=== PATIENT | female | born 1960 | race Caucasian/White ===

== ENCOUNTER 2019-09-22 10:14 | Inpatient (IN) | payer OTHER ==
[2019-09-22] VITALS (11 sets, daily range): BP systolic 97–131; BP diastolic 72–81
[~2019-09-22] VITALS: Ht 162.6 cm; Wt 58.3 kg
--- NOTE | ~2019-09-22 | EEG ---
[address] [address] EEG STUDY REPORT Name: RIDGE CAMPOS Room: [address] IN .#: [id number] Admission: 09/22/19 Attend Phys: Shekhar Lopez MD Discharge: Date of : 58 Report #: [id number] THIS REPORT FOR: //name// CC: Shekhar Lopez [facility] physician/PCP DATE OF SERVICE: 09/23/2019 This patient is being evaluated for altered mental status. EEG was done by placing the electrode by standard 10-20 system of electrode placement. Both referential and sequential montages were used for recording. Background activity in this patient's EEG is about 8 Hz and 30 microvolt. Photic stimulation is unremarkable. The patient became drowsy that is associated with bilateral slowing and vertex sharp waves. Throughout the record, no active epileptiform activity was noticed. IMPRESSION: This patient's EEG is unremarkable. Thank you very much for this referral. By: [id number] Velázquez MD /nt
[~2019-09-22 10:14] MED LIST: ALPRAZOLAM; ALPRAZOLAM2 MG PO; CARISOPRODOL 3350 M1 GT; DARVOCET-N 1001 EAC1 PO; DESYREL300 MG PO
[2019-09-22] MEDS ORDERED: SOMA350 MG PO (10:30)
[2019-09-22 10:39] LABS: ABSOLUTE BASOPHILS 0.1 thou/uL (0.0-0.2); ABSOLUTE LYMPHOCYTES 1.3 thou/uL (0.8-5.3); ABSOLUTE MONOCYTES 0.6 thou/uL (0.0-1.2); ABSOLUTE NEUTROPHILS 3.9 thou/uL (1.6-8.1); EOSINOPHILS 0.7 %; HEMATOCRIT 39.1 % (37.0-47.0); HEMOGLOBIN 13.4 gm/dL (12.0-15.0); LYMPHOCYTES 22.7 %; MCHC 34.2 g/dL (28.0-37.0); MCV 108.3 fL (80.0-100.0); MONOCYTES 10.2 %; MPV 8.1 fl. (7.2-11.1); NUCLEATED RBCS 0 /100WBC; PLATELET COUNT* 236 thou/uL (150-400); POLYS 65.4 %; RBC 3.61 mil/uL (4.20-5.00); RDW-CV 15.9 % (10.5-14.5); WBC 5.9 thou/uL (4.0-11.0)
[2019-09-22 10:52] LABS: CALCIUM 8.6 mg/dL (8.5-10.1); CREATININE 0.9 mg/dL (0.6-1.3); POTASSIUM 3.5 mmol/L (3.5-5.1)
[2019-09-22 10:53] LABS: PROTIME 10.7 Seconds (9.20-11.50)
[2019-09-22 11:00] LABS: SALICYLATE 3.3 mg/dL (2.8-20.0)
[2019-09-22 11:01] LABS: ACETAMINOPHEN < 2 ug/mL (10-30); ALCOHOL < 10 mg/dL (<10)
[2019-09-22 11:03] LABS: ALBUMIN 3.6 g/dL (3.4-5.0); TOTAL PROTEIN 6.7 g/dL (6.4-8.2)
[2019-09-22 11:38] LABS: URINE BILIRUBIN NEGATIVE (Negative); URINE BLOOD TRACE (Negative); URINE CLARITY CLEAR; URINE COLOR YELLOW; URINE GLUCOSE-RANDOM NEGATIVE (Negative); URINE KETONES NEGATIVE (Negative); URINE LEUKOCYTES-REFLEX TRACE (Negative); URINE NITRITE-REFLEX NEGATIVE (Negative); URINE PROTEIN NEGATIVE (Negative)
[2019-09-22 11:52] LABS: BACTERIA-REFLEX 1-9 Few /HPF (None Seen); CRYSTALS None Seen /LPF (None Seen); HYALINE CASTS 0-3 Few /LPF (None Seen); MUCUS 4-6 Moderate strn/LPF (None Seen); SQUAMOUS 4-10 Moderate /LPF (0-3); URINE RBC 0-2 Rare /HPF (0-2); URINE WBC-REFLEX 6-15 Few /HPF (0-5)
[2019-09-22 13:22] LABS: AMP/METHAMP Negative (Negative); BARBITURATES Negative (Negative); BENZODIAZEPINES POSITIVE (Negative); COCAINE Negative (Negative); METHADONE Negative (Negative); OPIATES Negative (Negative); PCP Negative (Negative); THC Negative (Negative)
[2019-09-22] MEDS ORDERED: METHOCARBAMOL500 M2 PO ×2 (14:32→14:33)
[2019-09-22] MEDS ORDERED: PEPCID20 MG PO (14:35)
[2019-09-22] MEDS ORDERED: NEURONTIN 300M300 M2 PO (14:36)
[2019-09-23] VITALS (13 sets, daily range): BP systolic 100–132; BP diastolic 63–88
[2019-09-23 04:13] LABS: ABSOLUTE BASOPHILS 0.1 thou/uL (0.0-0.2); ABSOLUTE EOSINOPHILS 0.1 thou/uL (0.0-0.7); ABSOLUTE LYMPHOCYTES 3.5 thou/uL (0.8-5.3); ABSOLUTE MONOCYTES 0.7 thou/uL (0.0-1.2); ABSOLUTE NEUTROPHILS 2.5 thou/uL (1.6-8.1); BASOPHILS 0.7 %; EOSINOPHILS 0.9 %; HEMATOCRIT 35.8 % (37.0-47.0); HEMOGLOBIN 12.2 gm/dL (12.0-15.0); LYMPHOCYTES 51.7 %; MCH 37.1 pg (26.0-34.0); MCV 109.1 fL (80.0-100.0); MONOCYTES 9.7 %; MPV 8.4 fl. (7.2-11.1); NUCLEATED RBCS 0 /100WBC; PLATELET COUNT* 239 thou/uL (150-400); RBC 3.28 mil/uL (4.20-5.00); RDW-CV 16.2 % (10.5-14.5); WBC 6.8 thou/uL (4.0-11.0)
[2019-09-23 04:30] LABS: CALCIUM 8.4 mg/dL (8.5-10.1); CREATININE 0.6 mg/dL (0.6-1.3); POTASSIUM 3.2 mmol/L (3.5-5.1)
--- NOTE | 2019-09-23 17:31 | EKG ---
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 : 1960 Requested By: Lalo Hilliard Order Number: [id number] MD: Jesus Esparza Measurements Intervals [place] Rate: 105 P: 72 OK: 147 QRS: 77 QRSD: 79 T: 22 QT: 342 QTc: 453 Interpretive Statements Sinus tachycardia Consider right atrial enlargement Borderline repolarization abnormality Compared to ECG 04/16/2018 22:11:20 No significant changes Electronically Signed On 09-23-2019 17:31:40 CDT by Jesus Esparza [email or web address] <ELECTRONICALLY SIGNED> By: Jesus Esparza MD, [facility] 09/23/19 1731 1042 1042 Jesus Esparza MD, [facility] /EPI
[2019-09-24] VITALS: BP 139/85
[2019-09-24 07:38] LABS: ABSOLUTE BASOPHILS 0.2 thou/uL (0.0-0.2); ABSOLUTE EOSINOPHILS 0.1 thou/uL (0.0-0.7); ABSOLUTE LYMPHOCYTES 3.6 thou/uL (0.8-5.3); ABSOLUTE MONOCYTES 0.7 thou/uL (0.0-1.2); BASOPHILS 2.2 %; EOSINOPHILS 0.8 %; HEMATOCRIT 35.2 % (37.0-47.0); HEMOGLOBIN 11.8 gm/dL (12.0-15.0); LYMPHOCYTES 48.4 %; MCH 37.1 pg (26.0-34.0); MCHC 33.6 g/dL (28.0-37.0); MCV 110.3 fL (80.0-100.0); MONOCYTES 8.9 %; MPV 9.8 fl. (7.2-11.1); NUCLEATED RBCS 0 /100WBC; PLATELET COUNT* 189 thou/uL (150-400); POLYS 39.7 %; RBC 3.19 mil/uL (4.20-5.00); RDW-CV 16.5 % (10.5-14.5); WBC 7.5 thou/uL (4.0-11.0)
[2019-09-24 08:00] VITALS: BP 133/90
[2019-09-24 08:09] LABS: ALBUMIN 3.3 g/dL (3.4-5.0); CALCIUM 8.6 mg/dL (8.5-10.1); CREATININE 0.6 mg/dL (0.6-1.3); MAGNESIUM 2.2 mg/dL (1.8-2.4); PHOSPHORUS* 3.8 mg/dL (2.5-4.9); POTASSIUM 4.5 mmol/L (3.5-5.1); TOTAL BILIRUBIN 0.8 mg/dL (<0.1-1.0); TOTAL PROTEIN 5.9 g/dL (6.4-8.2)
[2019-09-24 11:13] LABS: MACROCYTES 2+; PLATELET ESTIMATE ADEQUATE
[2019-09-24 12:00] VITALS: BP 127/76
[2019-09-24 16:22] VITALS: BP 133/103
[2019-09-24 19:30] VITALS: BP 140/82
[2019-09-25] VITALS: BP 137/91
--- NOTE | 2019-09-25 03:46 | CON ---
[address] [address] CONSULTATION Name: RIDGE CAMPOS Room: [address] ADM IN M.R.#: [id number] Admission: 09/22/19 Attend Phys: Shekhar Lopez MD Discharge: Date of : 58 Report #: [id number] THIS REPORT FOR: //name// cc: FORTUNATO Hickey family physician/PCP FORTUNATO Hickey family physician/PCP ~ THIS REPORT FOR: //name// CC: Shekhar Lopez FAM physician/PCP DATE OF SERVICE: 09/22/2019 ADDENDUM IMPRESSION: This patient is difficult to evaluate because we have no history available in this patient. We need to get a better history. I do not know how to get it for the time being, but we will try. It is possible this patient has a baseline dementia. It is possible this patient is overmedicated on top of that and history indicates she may have some dementia in the baseline and she may be closer to her baseline. Other pathology needs to be considered. Because of all this, I am going to get an MRI. I am going to get an EEG and follow up tomorrow and see what this patient's workup shows and hopefully try to talk to some family member. Thank you very much for this referral and we will follow the patient along with you. <ELECTRONICALLY SIGNED> By: Justin Velázquez MD 09/25/19 0346 57Justin Velázquez MD /marisol
--- NOTE | 2019-09-25 03:46 | CON ---
[address] [address] CONSULTATION Name: RIDGE CAMPOS Room: [address] IN .R.#: [id number] Admission: 09/22/19 Attend Phys: Shekhar Lopez MD Discharge: Date of : 58 Report #: [id number] THIS REPORT FOR: //name// cc: FORTUNATO Hickey family physician/PCP FORTUNATO Hickey family physician/PCP ~ THIS REPORT FOR: //name// CC: Shekhar Lopez FAM physician/PCP HISTORY OF PRESENT ILLNESS: This 59-year-old female patient who was evaluated by me for altered mental status. This patient is confused and she does not provide any reasonable history. I reviewed the patient's records and it looks like this patient was found confused by neighbors and then she was transferred here. That is all the history, which is available. When I asked that she drinks alcohol, she says she does. She will not elaborate any further. She does complain of some old back pain and headache to me, she tells me that is not her big problem. Some of the history indicates she has a history of dementia, but I do not know how established the diagnosis is. We need to reach some family member if we can to get some further history. REVIEW OF SYSTEMS: Indicate that when the patient came in, she was apparently pretty confused. She looks like was on a high dose of Xanax. I do not know whether she has run out of it. She does not tell me who is prescribing her medication. A 14-point review of system was attempted, but it was very difficult to carry out. This is all the history I can get. PAST MEDICAL HISTORY: Unavailable except as summarized above. FAMILY HISTORY: Noncontributory. SOCIAL HISTORY: She drinks alcohol, but she is pretty evasive how much alcohol she drinks. PHYSICAL EXAMINATION: Pretty limited. She is alert and responsive. She smiles. She does not know what month it is, what day it is. She is not obtunded. She is poorly cooperative with the examination, but her cranial nerve examination looks mostly unremarkable. She moves all 4 extremities. Her position sense appeared to be intact. Reflexes are present. She did not cooperate with the fundus examination. Cardiac and respiratory examinations appear unremarkable. Blood pressure is 131/76, respirations 16, pulse is 101. Her MCV is high at 108, platelet count is although normal. She did have a CT scan of the head on admission and I reviewed that and that appeared [place] [address] CONSULTATION Name: RIDGE CAMPOS Edmund Room: [address] IN [facility]#: [id number] Admission: 09/22/19 Attend Phys: Shekhar Lopez MD Discharge: Date of : 58 Report #: [id number] Dictation Ends Here. <ELECTRONICALLY SIGNED> By: Justin Velázquez MD 09/25/19 0346 1827 1838Justin Velázquez MD /marisol
[2019-09-25 04:00] VITALS: BP 138/80
[2019-09-25 04:32] LABS: ABSOLUTE BASOPHILS 0.1 thou/uL (0.0-0.2); ABSOLUTE LYMPHOCYTES 3.3 thou/uL (0.8-5.3); ABSOLUTE MONOCYTES 0.7 thou/uL (0.0-1.2); ABSOLUTE NEUTROPHILS 4.8 thou/uL (1.6-8.1); BASOPHILS 1.4 %; EOSINOPHILS 0.3 %; HEMATOCRIT 35.5 % (37.0-47.0); LYMPHOCYTES 37.1 %; MCH 36.7 pg (26.0-34.0); MCV 108.2 fL (80.0-100.0); MONOCYTES 7.4 %; MPV 8.7 fl. (7.2-11.1); NUCLEATED RBCS 0 /100WBC; PLATELET COUNT* 277 thou/uL (150-400); POLYS 53.8 %; RBC 3.28 mil/uL (4.20-5.00); RDW-CV 16.2 % (10.5-14.5); WBC 8.9 thou/uL (4.0-11.0)
[2019-09-25 05:13] LABS: ALBUMIN 3.4 g/dL (3.4-5.0); CALCIUM 8.7 mg/dL (8.5-10.1); CREATININE 0.6 mg/dL (0.6-1.3); POTASSIUM 3.6 mmol/L (3.5-5.1); TOTAL BILIRUBIN 0.8 mg/dL (<0.1-1.0); TOTAL PROTEIN 6.4 g/dL (6.4-8.2)
[2019-09-25 07:57] VITALS: BP 132/94
[2019-09-25] MEDS ORDERED: VITAMIN B-1100 M1 PO (12:03)
[2019-09-25] MEDS ORDERED: KEPPRA 500 MG500 M1 PO (12:03)
[2019-09-25 12:15] VITALS: BP 134/98
[2019-09-25 19:40] VITALS: BP 154/97
[2019-09-26] VITALS: BP 93/53
[2019-09-26 04:11] VITALS: BP 112/65
[2019-09-26 07:55] VITALS: BP 112/71
[2019-09-26 12:25] VITALS: BP 139/76
[2019-09-26 18:25] VITALS: BP 115/77
[2019-09-26 19:20] VITALS: BP 131/94
[2019-09-27 00:05] VITALS: BP 96/57
[2019-09-27 04:00] VITALS: BP 80/50
[2019-09-27 12:53] VITALS: BP 116/78
[2019-09-27 19:25] VITALS: BP 105/81
[2019-09-28 04:00] VITALS: BP 104/64
[2019-09-28 08:00] VITALS: BP 101/73
[2019-09-28 14:27] VITALS: BP 107/43
[2019-09-28 19:30] VITALS: BP 112/72
[2019-09-29 07:15] VITALS: BP 96/59
[2019-09-29 11:23] VITALS: BP 96/59
[2019-09-29] MEDS ORDERED: VIBERZI100 MG PO (17:28)
[2019-09-29] MEDS ORDERED: METHOCARBAMOL500 M2 PO (17:32)
== END 2019-09-29 16:30 | DRG 689 ==
LOC: M.ERS 10:14 → M.2W 12:19 → M.TBA-ER 12:19 → M.ICU 12:19 → M.3W 13:58 → M.ICU 17:54 → M.2W 09-23 09:39
PROVIDERS: Emergency Medicine Emergency Medical Services; ADMIT Internal Medicine; ATTEND Internal Medicine
DX: N39.0 Urinary tract infection, site not specified (principal); G93.41 Metabolic encephalopathy; F10.231 Alcohol dependence with withdrawal delirium; Y90.9 Presence of alcohol in blood, level not specified; F29 Unspecified psychosis not due to a substance or known physiological condition; R56.9 Unspecified convulsions; F22 Delusional disorders; F41.9 Anxiety disorder, unspecified; Z20.828 Contact with and (suspected) exposure to other viral communicable diseases; Z79.899 Other long term (current) drug therapy; Z88.5 Allergy status to narcotic agent; Z87.891 Personal history of nicotine dependence

== ENCOUNTER 2020-09-17 00:02 | Inpatient (IN) | payer OTHER ==
[~2020-09-17] VITALS: Ht 165.1 cm; Wt 74.8 kg
[2020-09-17] VITALS (7 sets, daily range): BP systolic 102–147; BP diastolic 66–89
[~2020-09-17 00:02] MED LIST changes: +B-12500 MCG PO; +HALOPERIDOL 1 MG1 MG PO; +KEPPRA 500 MG500 M1 PO; +METHOCARBAMOL500 M2 PO; +NEURONTIN 300M300 M2 PO; +PEPCID20 MG PO; +SOMA350 MG PO; +VIBERZI100 MG PO; +VITAMIN B-1100 M1 PO
[2020-09-17 00:42] LABS: ABSOLUTE BASOPHILS 0.1 thou/uL (0.0-0.2); ABSOLUTE EOSINOPHILS 0.1 thou/uL (0.0-0.7); ABSOLUTE LYMPHOCYTES 2.5 thou/uL (0.8-5.3); ABSOLUTE MONOCYTES 0.3 thou/uL (0.0-1.2); ABSOLUTE NEUTROPHILS 4.4 thou/uL (1.6-8.1); BASOPHILS 0.7 %; EOSINOPHILS 0.8 %; HEMATOCRIT 45.5 % (37.0-47.0); HEMOGLOBIN 15.2 gm/dL (12.0-15.0); LYMPHOCYTES 33.7 %; MCHC 33.4 g/dL (28.0-37.0); MCV 104.8 fL (80.0-100.0); MONOCYTES 4.5 %; NUCLEATED RBCS 0 /100WBC; PLATELET COUNT* 200 thou/uL (150-400); POLYS 60.3 %; RBC 4.34 mil/uL (4.20-5.00); RDW-CV 16.3 % (10.5-14.5); WBC 7.3 thou/uL (4.0-11.0)
[2020-09-17 01:28] LABS: CALCIUM 8.4 mg/dL (8.5-10.1); CREATININE 0.7 mg/dL (0.6-1.3); POTASSIUM 3.6 mmol/L (3.5-5.1)
[2020-09-17 01:33] LABS: ALBUMIN 3.6 g/dL (3.4-5.0); TOTAL BILIRUBIN 0.2 mg/dL (<0.1-1.0); TOTAL PROTEIN 7.3 g/dL (6.4-8.2)
[2020-09-17] MEDS ORDERED: HALDOL 0.5 MG0.5 MG PO (02:18)
--- NOTE | 2020-09-17 06:36 | NUR ---
ASSUMED CARE OF PT AT 0535 FROM THE PACU. PT IS ORIENTED BUT VERY DROWSY. PT DENIES PAIN AT THIS TIME. VSS. PT IS IN SINUS RYTHM ON THE TELEMETRY. PT IS ON 2 LITERS. PT IS SLEEPING QUIETLY IN BED. RESPIRATIONS ARE EVEN AND NONLABORED. WILL CONTINUE TO MONITOR PT.
--- NOTE | 2020-09-17 16:04 | NUR ---
CM spoke with Pt's son via phone. Pt resides at home with her . Per son, Pt has been doing well at home, since her last dc from this hospital in 09/2019 when Pt was dc to [facility]. Per son, Pt was dx with schizophrenia and was started on medication, which in words "have worked wonders." Per son, Pt is not compliant with taking her meds all of the time. Pt's works long hours so Pt is often home alone. Pt has a counselor that comes to her home to help with coping skills. No DME. No hx of HH or SNF. PT evaluated, recommending that Pt is not safe to dc home. CM updated son, son to discuss with family for appropriate dc plans SNF v. ARU v. HH. Per son, may be able to take some time off work to assist Pt at home. Son to update CM on Sunday.
--- NOTE | 2020-09-17 17:41 | EKG ---
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1960 Requested By: Suzy Coles Order Number: [id number] MD: Thai Ontiveros Measurements Intervals [place] Rate: 78 P: 18 AK: 63 QRS: 63 QRSD: 75 T: 17 QT: 447 QTc: 510 Interpretive Statements Sinus rhythm nonspecific st segment changes Short AK interval Left atrial enlargement Low voltage, precordial leads Prolonged QT interval Compared to ECG 09/22/2019 10:42:25 Low QRS voltage now present Prolonged QT interval now present Sinus tachycardia no longer present Electronically Signed On 09-17-2020 17:41:36 CDT by Thai Ontiveros [email or web address] <ELECTRONICALLY SIGNED> By: Thai Ontiveros MD, [facility] 09/17/20 1741 0155 Thai Ontiveros MD, [facility] /EPI
[2020-09-18] VITALS (8 sets, daily range): BP systolic 98–127; BP diastolic 58–76
--- NOTE | 2020-09-18 01:10 | NUR ---
PT TRANSFERRED FROM ROOM 117 TO 229 PER BED WITH CHART AND BELONGINGS. PT AO TO SELF,SITUATION, PLACE. FLAT AFFECT AND FORGETFUL AT TIMES. O22L WHILE SLEEPING. RLE WITH EXTERNAL FIXATOR IN PLACE, JAIR WRAP WITH BLOODY DRAINAGE, PAD PLACED UNDER RLE FOR REINFORCEMENT. LFA IVF PLACED ON PUMP FOR INFUSION, ABX GIVEN. HYDROCODONE GIVEN FOR CO PAIN. CALL LITE IN EASY REACH. WILL CONTINUE TO MONITOR AND PROVIDE CARES NEEDED. MED SURG STATUS
--- NOTE | 2020-09-18 06:41 | NUR ---
PT HAS SLEPT WELL SINCE TRANSFERRING TO FLOOR. AO, FORGETFUL. TREMORS AND FLAT AFFECT PART OF PSYCH HISTORY. RLE EXTERNAL FIXATOR INPLACE, JAIR WRAP DRSG WITH SHADOWING UNDER CALF AND PIN SITE BUT NO NEW SHADOWING OR BLOODY DRAINAGE PRESENT ON DRSG, PAD PLACE UNDER RLE UPON TRANSFER TO FLOOR REMAINS DRY. CIWA 4. MED SURG STATUS. BP SOFT AFTER HS MEDS AND HYDROCODONE. LFA IVF BANANA BAG INFUSING PER PUMP. CALL LITE IN EASY REACH, BED ALRM ON FOR SAFETY.R FOOT PINK WITH + PULSES. PT REPOSITIONED Q2 HOURS ABLE WITH FIXATOR.
[2020-09-18 07:23] LABS: CALCIUM 7.6 mg/dL (8.5-10.1); CREATININE 0.6 mg/dL (0.6-1.3); POTASSIUM 4.3 mmol/L (3.5-5.1)
[2020-09-18 10:28] LABS: AMP/METHAMP Negative (Negative); BARBITURATES Negative (Negative); BENZODIAZEPINES POSITIVE (Negative); COCAINE Negative (Negative); METHADONE Negative (Negative); OPIATES POSITIVE (Negative); PCP Negative (Negative); THC Negative (Negative)
[2020-09-18 11:54] LABS: ABSOLUTE BASOPHILS 0.1 thou/uL (0.0-0.2); ABSOLUTE LYMPHOCYTES 2.2 thou/uL (0.8-5.3); ABSOLUTE MONOCYTES 0.9 thou/uL (0.0-1.2); ABSOLUTE NEUTROPHILS 7.3 thou/uL (1.6-8.1); BASOPHILS 0.9 %; EOSINOPHILS 0.2 %; HEMOGLOBIN 13.7 gm/dL (12.0-15.0); LYMPHOCYTES 20.6 %; MCH 34.6 pg (26.0-34.0); MCHC 32.5 g/dL (28.0-37.0); MCV 106.2 fL (80.0-100.0); MONOCYTES 8.3 %; MPV 7.2 fl. (7.2-11.1); NUCLEATED RBCS 0 /100WBC; PLATELET COUNT* 193 thou/uL (150-400); RBC 3.95 mil/uL (4.20-5.00); RDW-CV 16.3 % (10.5-14.5); WBC 10.5 thou/uL (4.0-11.0)
[2020-09-19 04:00] VITALS: BP 107/68
--- NOTE | 2020-09-19 05:22 | NUR ---
PT IS AO X4 WITH FLAT AFFECT AND TREMOR THAT IS REPORTED SIDE EFFECT OF PSYCH MEDS. SHE ANSWERS ALL QUESTIONS APPROPRIATELY AND HAS A ODD HUMOR ABOUT HER. PT IS 88% ON ROOM AIR SO SHE WAS GIVEN 2L NC WHICH BRINGS HER UP TO 93%.PT HAS EXTERNAL FIXATOR TO RT LEG THAT IS WRAPPED IN JAIR WITH SOME DRIED BLOOD ON IT. SHE RATES HER PAIN 9/10 AND OXY IR AND TYLENOL WERE GIVEN . PT HAS LOW GRADE TEMP WELL. PT IS TO BE GETTING UP TO CHAIR FOR MEALS BUT IS NOT LETTING STAFF REPOSITION HER Q2 HRS. SHE HAS BEEN USING A BEDPAN TO VOID. PAIN MEDS REDUCED PAIN AND FEVER AND WERE AGAIN ADMINISTERED LATER TO KEEP PAIN UNDER CONTROL, PT WAS ABLE TO RELAX AND SLEEP. VSS, CALL LIGHT WITHIN REACH.
[2020-09-19 08:42] VITALS: BP 90/61
[2020-09-19 12:07] VITALS: BP 85/58
[2020-09-19 16:49] VITALS: BP 99/69
--- NOTE | 2020-09-19 20:23 | OP ---
[address] [address] OPERATIVE REPORT Name: BETHRIDGE Edmund Room: [address] IN .R.#: [id number] Admission: 09/17/20 Attend Phys: Alecia Perez Discharge: Date of : 58 Report #: [id number] THIS REPORT FOR: cc: FAM - No family physician/PCP FAM - No family physician/PCP Macho Juan II, DO ~ DATE OF SURGERY: 09/17/2020 PREOPERATIVE DIAGNOSIS: Open right tibia and fibula fracture of the shaft with displacement and comminution. POSTOPERATIVE DIAGNOSIS: Open right tibia and fibula fracture of the shaft with displacement and comminution. PROCEDURE: Irrigation and debridement, open tibia and fibula fracture with application of external fixator. SURGEON: Macho Juan II, DO NOVELTY PRINTING MACHINE OPERATOR: None. ANESTHESIA: Spinal. ESTIMATED BLOOD LOSS: 15 mL. ANTIBIOTICS: Ancef and vancomycin. SPECIMENS REMOVED: None. COMPLICATIONS: None. CONDITION: The patient is stable to recovery room. IMPLANTS USED: Mana external fixator with 4 bone pins and appropriate hardware. DESCRIPTION OF PROCEDURE: The patient was taken to the operative suite and placed supine on the operative table and appropriate anesthesia. The patient's right leg was sterilely prepped and draped with a well-padded tourniquet applied to the upper thigh. This was not inflated. Surgery began by evaluation of the open wound, which measured over 10 cm. This was opened, removing the four stitches that were in place. Irrigation then performed of the open wound. Debridement was performed of the bone ends, noted she had had shae dirt on the proximal end. This was removed utilizing a curette. Soft tissues also had small pieces of hair, which were removed as well. Irrigation was then performed with 3 liters of sterile saline to remove excess debris [place] [address] OPERATIVE REPORT Name: RIDGE CAMPOS Room: [address] IN [facility]#: [id number] Admission: 09/17/20 Attend Phys: Alecia Perez Discharge: Date of : 58 Report #: [id number] irrigation was performed in this region utilizing suction to remove excess debris. Once this had been performed, the bone ends were reapproximated in near anatomic fashion, held with bone reduction forceps. At this time, due to the soft tissue coverage and swelling, external fixator was elected. Two pins were placed in the proximal tibia and 2 pins were placed in the distal tibia. External fixator was then applied with a dual plane carbon fiber rods. These were then cinched into position. Final x-rays were taken with the C-arm, both AP and lateral directions showing excellent position of the pins on fluoroscopic guidance and excellent fracture reduction. Wound was once again copiously irrigated and then subcuticular layer was closed with 2-0 Vicryl. Skin was closed with 3-0 nylon in a simple interrupted fashion. Xeroform was then applied as well as gauze and Roderick wrap was then applied. The patient transferred to recovery room in stable condition. Counts were correct throughout the procedure. At this time, with the patient we discussed as long as continued no evidence of infection, we will proceed with definitive fixation in five to seven days once antibiotics have taken effect and swelling has decreased. The patient is taken to the recovery room in stable condition. <ELECTRONICALLY SIGNED> By: Macho Juan II, DO 09/19/202022 30 2350Macho Juan II, DO /nt
--- NOTE | 2020-09-19 20:23 | CON ---
[address] [address] CONSULTATION Name: RIDGE CAMPOS Room: [address] IN .[place].#: [id number] Admission: 09/17/20 Attend Phys: Alecia Perez Discharge: Date of : 58 Report #: [id number] THIS REPORT FOR: cc: FAM - No family physician/PCP FAM - No family physician/PCP Macho Juan II DO ~ DATE OF CONSULTATION: 09/17/2020 ORTHOPEDIC CONSULTATION CHIEF COMPLAINT: Right tibial fracture. HISTORY OF PRESENT ILLNESS: The patient is a 60-year-old female who presented to the hospital following missing stairs. She mentions she was under the influence of alcohol, seen in the ER. States she does smoke cigarette and weed and has been drinking wine or hard liquor. She states that she has had pain in the mid shaft of the right tibia, lasts for many hours throughout the day since the accident, does get better with rest. She has had also some backaches, but denies any significant other complaints. Did have some nausea and vomiting, most likely due to her alcohol. The patient has had chronic mental illness, for which she follows with psychiatrist. We are consulted for further evaluation. MEDICAL PROBLEMS: Acute metabolic encephalopathy; fracture right tibia, open, acute, type 2; psychosis; schizophrenia; seizure; tobacco abuse; and UTI. SOCIAL HISTORY: The patient does drink alcohol, smokes weed. Denies tobacco. ALLERGIES: TO CODEINE, DOES CAUSE ITCHING. FAMILY HISTORY: Noncontributory. REVIEW OF SYSTEMS: A 12-point review of systems was reviewed and negative except for pertinent positives in the HPI. PHYSICAL EXAMINATION: GENERAL: The patient is pleasant, resting in ER bed. HEENT: Head: Normocephalic, atraumatic. Eyes: Equal, round and reactive to light. Nose: Clear without ulceration. Mouth: Moist mucous membranes. NECK: Supple. No JVD or bruit. CARDIAC: Regular rhythm. Cap refill is normal to the extremities. LUNGS: Clear to auscultation bilaterally. No wheezes or crackles. ABDOMEN: Soft, bowel sounds present, no masses. EXTREMITIES: No clubbing, cyanosis or edema. Right lower extremity does have open tibia fracture, which is splinted at this time with light oozing. It is closed with four sutures. Skin is normal in color [place] [address] CONSULTATION Name: RIDGE CAMPOS Room: [address]#: [id number] Admission: 09/17/20 Attend Phys: Alecia Perez Discharge: Date of : 58 Report #: [id number] distally. PSYCHIATRIC: The patient has a flat affect. NEUROLOGIC: The patient is alert and conversational. VITAL SIGNS: Blood pressure 122/77, temperature 98.9, pulse 90, respirations 18. RADIOLOGY: Compound, comminuted distal tibia shaft fracture with fibular fracture, open in nature, angulation is noted. LABORATORY DATA: Sodium 144, potassium 3.6, chloride 106, carbon dioxide 27, AST 12, ALT 13. Hemoglobin 15.2, platelet count 200. ASSESSMENT: 1. Fall with traumatic right open tibial fracture with associated fibular fracture. 2. Alcoholism. 3. Smoking. 4. History of psychosis. PLAN: At this time, ____ is readying the patient with a banana bag, analgesics, DVT prophylaxis, monitoring for alcohol withdrawal. Due to the open fracture, urgent intervention is needed in the operative suite. The patient is discussed risks and benefits, contraindications and indications of the procedure including but not limited to , heart attack, stroke, infection, blood clot, pulmonary embolus as well as the risk of neurovascular compromise, risk of anesthesia. The patient elects to proceed and understands all risks. Consent was obtained. The patient was continued n.p.o. and states she has had over 8 hours of n.p.o. status. We will take to the OR for irrigation and debridement of the open fracture with removal of excess debris. We then realigned the fracture fragments and used temporary external fixation to allow for decrease in the amount of swelling to the extremity as well as to evaluate for any infection ____ arise as skin and soft tissues allow. We will proceed with definitive fixation, most likely of internal medullary nailing at patient's election and consent. These were discussed with the patient in detail. The patient assumes understanding, however does have alcohol on board and is unable to fully make informed decisions, she states. We will proceed with fixation as medically necessary. I appreciate this consultation. <ELECTRONICALLY SIGNED> By: Macho Juan II, DO 09/19/202022 2329Macho Juan II, DO /nt
[2020-09-19 20:50] VITALS: BP 113/70
[2020-09-20 00:21] VITALS: BP 97/60
--- NOTE | 2020-09-20 07:09 | NUR ---
Alert and oriented x 4. She has a rt tib/fib fx and it has external fixator. There is and acewrap dressing also in place. She is nonweight bearing to E and she is stand pivot to the bedside commode. She's had pain meds x 3 this shift. She has slept well.
[2020-09-20 07:50] VITALS: BP 108/63
[2020-09-20 12:27] VITALS: BP 108/68
--- NOTE | 2020-09-20 15:08 | NUR ---
THIS DENTAL OFFICER IS IN AGREEMENT WITH DOCUMENTATION BY RAOUL BLACKWELL FOR THIS DAY. RAJAT JACOBSONT
--- NOTE | 2020-09-20 15:30 | NUR ---
PLAN OF CARE: PHYSICIAN INFORMS OF PLAN FOR THE PT TO D/C. HOWEVER SX INFORMS OF PLAN FOR INTERVENTION, SO PT'S D/C ON HOLD AT THIS TIME. CM WILL REMAIN AVAILABLE TO ASSIST AND FOLLOW NEEDED.
[2020-09-20 16:07] VITALS: BP 96/58
--- NOTE | 2020-09-20 16:47 | NUR ---
PT REMAINED ALERT AND ORIENTED. SURGERY TOMORROW. NPO AFTER MIDNIGHT. FALL RISK PRECAUTIONS IN PLACE. HOURLY ROUNDING COMPETED. CALL LIGHT WITHIN REACH.
[2020-09-20 20:34] VITALS: BP 107/65
[2020-09-21] VITALS: BP 93/57
[2020-09-21 02:10] VITALS: BP 93/57
[2020-09-21 04:00] VITALS: BP 79/51
--- NOTE | 2020-09-21 04:19 | NUR ---
PT MED/SURG STATUS, A&OX4. VSS ON 2.5L NC (PT 80% O2 SAT ON ROOM AIR AT 2033, PT PLACED ON O2 2.5L NC, O2 SAT 94% ON 2.5L). PT REPOSITIONED Q2H. PT NPO SINCE MIDNIGHT. NO PRN PAIN MEDS REQUESTED THIS SHIFT OF THIS TIME. PRN ANXIOLYTIC REQUESTED AND GIVEN ORDERED. NWB TO RLE MAINTAINED. PT RESTING IN BED, WILL CONTINUE TO MONITOR.
[2020-09-21 04:49] LABS: INR 1.1; PROTIME 11.4 Seconds (9.20-11.50)
[2020-09-21 07:25] VITALS: BP 103/56
--- NOTE | 2020-09-21 15:37 | NUR ---
PLAN OF CARE: PHYSICIAN INFORMS OF PLAN FOR PT TO POSSIBLY D/C HOME TOMORROW HOME WITH HH. CM WILL REMAIN AVAILABLE TO ASSIST AND FOLLOW NEEDED.
[2020-09-21 16:00] VITALS: BP 132/78
--- NOTE | 2020-09-21 16:40 | NUR ---
PT REMAINED ALERT AND ORIENTED. PT HAD SURGERY TODAY TO REMOVE EXTERNAL FIXATOR AND REPAIR FRACTURE. PT DENIES ANY PAIN AT THIS TIME. PT HAD NAUSEA POST OP, MEDS GIVEN ORDERED. ANIXETY MEDS GIVEN PRN. FALL RISK PRECAUTIONS IN PLACE. HOURLY ROUNDING COMPLETED. CALL LIGHT WITHIN REACH.
[2020-09-21 20:27] VITALS: BP 119/65
[2020-09-22 00:30] VITALS: BP 109/68
[2020-09-22 04:20] LABS: ALBUMIN 2.5 g/dL (3.4-5.0); CALCIUM 8.2 mg/dL (8.5-10.1); CREATININE 0.6 mg/dL (0.6-1.3); POTASSIUM 3.7 mmol/L (3.5-5.1); TOTAL BILIRUBIN 0.4 mg/dL (<0.1-1.0); TOTAL PROTEIN 6.1 g/dL (6.4-8.2)
[2020-09-22 04:29] LABS: ABSOLUTE LYMPHOCYTES 1.7 thou/uL (0.8-5.3); ABSOLUTE MONOCYTES 0.9 thou/uL (0.0-1.2); ABSOLUTE NEUTROPHILS 4.7 thou/uL (1.6-8.1); BASOPHILS 0.4 %; HEMATOCRIT 31.4 % (37.0-47.0); HEMOGLOBIN 10.7 gm/dL (12.0-15.0); LYMPHOCYTES 23.5 %; MCH 35.5 pg (26.0-34.0); MCHC 34.2 g/dL (28.0-37.0); MCV 103.9 fL (80.0-100.0); MONOCYTES 12.3 %; MPV 8.2 fl. (7.2-11.1); NUCLEATED RBCS 0 /100WBC; PLATELET COUNT* 240 thou/uL (150-400); POLYS 63.8 %; RBC 3.02 mil/uL (4.20-5.00); WBC 7.3 thou/uL (4.0-11.0)
--- NOTE | 2020-09-22 04:46 | NUR ---
PT A&OX4, VSS ON ROOM AIR, PT UP WITH ASSIST TO BSC, IV SALINE LOCKED. PT NPO SINCE MIDNIGHT. SR ON TELE MONITOR. PRN PAIN MED REQUESTED AND GIVEN ORDERED. PT SLEEPING WELL, WILL CONTINUE TO MONITOR.
--- NOTE | 2020-09-22 04:53 | NUR ---
PT A&OX4, VSS ON ROOM AIR, UP WITH ASSIST TO BSC, NWB TO RLE. MED/SURG STATUS. IV SALINE LOCKED. PRN ANXIOLYTIC AND PAIN MEDS REQUESTED AND GIVEN ORDERED. PT RESTING IN BED. WILL CONTINUE TO MONITOR.
[2020-09-22 07:30] VITALS: BP 158/88
--- NOTE | 2020-09-22 11:00 | OP ---
[address] [address] OPERATIVE REPORT Name: RIDGE CAMPOS Room: [address] IN .R.#: [id number] Admission: 09/17/20 Attend Phys: Alecia Perez Discharge: Date of : 58 Report #: [id number] THIS REPORT FOR: cc: FAM - No family physician/PCP FAM - No family physician/PCP Macho Juan II, DO ~ DATE OF SURGERY: 09/21/2020 PREOPERATIVE DIAGNOSIS: Right open tibial shaft fracture with prior external fixator. POSTOPERATIVE DIAGNOSIS: Right open tibial shaft fracture with prior external fixator. PROCEDURES: 1. Removal of right leg external fixator. 2. Intramedullary nailing of the right tibia open shaft fracture. SURGEON: Macho Juan II, DO. INNER LAYER SCRUBBER TENDER: CORBIN Bunch. ANESTHESIA: Per operative record. ESTIMATED BLOOD LOSS: Minimal. ANTIBIOTIC: Per operative record. DRAINS: None. COMPLICATIONS: None. CONDITION: The patient is stable to recovery room. OPERATIVE PROCEDURE: The patient was taken to the operative suite, placed supine on the operating table under appropriate anesthesia. The patient's right leg was sterilely prepped and draped in supine position. Surgery began by evaluation of the external fixator. The fracture was held in reduction and the external fixator was removed, first the external cage and then the 4 bone pins. A small curette was utilized to roughen the skin edges and irrigation was performed of these areas. Attention was then turned to the proximal aspect of the knee. A small incision was then made above the patella in the suprapatellar region. The suprapatellar guide was then introduced down into the knee, utilizing C-arm for evaluation. The alignment was then checked in AP and lateral directions for the tibial guide pin. Guide pine was then introduced into the intramedullary canal of the tibia and [place] [address] OPERATIVE REPORT Name: RIDGE CAMPOS Room: [address] IN [facility].#: [id number] Admission: 09/17/20 Attend Phys: Alecia Perez Discharge: Date of : 58 Report #: [id number] utilized with the protective sleeve in place. This was irrigated to remove all bony debris. Reamers were then utilized up to the appropriate size, which did show good chatter on the bone. This was removed and the appropriate length nail was measured and malleted into position. After it was malleted in appropriate position, fracture was checked for appropriate reduction, which showed excellent anatomic reduction. Two proximal screws were then placed through the nail and 2 distal screws utilizing perfect tonto apache technique. This was visualized in both AP and lateral directions to be within the nail and in an appropriate position. Final irrigation performed of the wounds. The incisions were all closed with 3-0 nylon and the proximal incision was closed with a Vicryl and Monocryl stitch. Dermabond was also applied as well as Roderick wrap. The patient was transported to recovery in stable condition. Counts were correct throughout the procedure. <ELECTRONICALLY SIGNED> By: Macho Juan II, DO 09/22/20 1100 2205Macho Juan II, DO /nt
[2020-09-22] MEDS ORDERED: XARELTO10 MG PO (11:25)
[2020-09-22 12:00] VITALS: BP 127/75
[2020-09-22] MEDS ORDERED: ROXICODONE5 MG PO (12:16)
--- NOTE | 2020-09-22 15:07 | NUR ---
I AGREE WITH RAOUL BLACKWELL'S DOCUMENTATION FOR THIS DAY. SAM ANTHONY,DPT
--- NOTE | 2020-09-22 15:31 | NUR ---
PLAN FOR THE PT TO D/C HOME TODAY WITH HH AND POSSIBLE HOME OXYGEN PENDING REST AND EXERCISE TESTING. CM FAXED PT'S CLINCIAL INFO TO A, AND AM AWAITING A RETURN CALL TO DETERMINE ABILITY TO ACCEPT THE PT. CM WILL REMAIN AVAILABLE TO ASSIST AND FOLLOW NEEDED.
[2020-09-22 15:50] VITALS: BP 127/75
[2020-09-22 16:00] VITALS: BP 145/87
[2020-09-22] MEDS ORDERED: FLUOXETINE HCL10 M1 PO (16:08)
[2020-09-22] MEDS ORDERED: RISPERDAL2 MG PO (16:08)
[2020-09-22] MEDS ORDERED: ALPRAZOLAM ER1 MG PO (16:09)
[2020-09-22] MEDS ORDERED: BENZTROPINE ME0.5 MG PO (16:14)
--- NOTE | 2020-09-22 16:30 | NUR ---
PT REMIANED ALERT AND ORIENTED. PT BECAME CONFUSED AT TIMES DURING SHIFT. PT HOME MEDS UPDATED AND SCHIZOPHRENIA MEDS STARTED. FAMILY UPDATED. PLAN D/C LATER DATE. FALL RISK PRECAUTIONS IN PLACE. HOURLY ROUNDING COMPLETED. CALL LIGHT WITHIN REACH. NO O2 NEEDED.
[2020-09-22 19:40] VITALS: BP 131/81
[2020-09-23] VITALS: BP 104/66
--- NOTE | 2020-09-23 04:13 | NUR ---
PT A&OX4, FORGETFUL, VSS ON ROOM AIR, IV SALINE LOCKED, UP WITH ASSIST TO [facility]. PRN PAIN MEDS REQUESTED AND GIVEN ORDERED. PT RESTING IN BED. WILL CONTINUE TO MONITOR.
[2020-09-23 08:00] VITALS: BP 99/66
--- NOTE | 2020-09-23 09:43 | NUR ---
jessie confirmed with galina at [facility] that d/c orders were received. per galina, pt is on schedule for today.
--- NOTE | 2020-09-23 15:25 | NUR ---
I AGREE WITH RAOUL BLACKWELL'S DOCUMENTATION FOR TODAY. SAM ANTHONY, RAJATT
[2020-09-23 16:00] VITALS: BP 109/73
--- NOTE | 2020-09-23 19:13 | NUR ---
PT UP THIS AM TO [facility] AND THEN TO HER CHAIR. PT VERY SLEEPY THIS AFTERNOON SO DR. SALINAS DID NOT WANT TO SEND HER HOME UNTIL SHE COULD TALK TO RITA MULLINS. WILL CONTINUE TO MONITOR PLAN OF CARE.
[2020-09-23 21:00] VITALS: BP 92/58
[2020-09-24] VITALS (7 sets, daily range): BP systolic 94–143; BP diastolic 58–75
--- NOTE | 2020-09-24 05:54 | NUR ---
Oriented x 4 but forgetful. Rt leg dressings intact.She requested pain meds x 1. She's up with assist to the [facility] .She has slept well.
[2020-09-24 06:01] LABS: HEMATOCRIT 28.7 % (37.0-47.0); HEMOGLOBIN 9.5 gm/dL (12.0-15.0); MCH 34.5 pg (26.0-34.0); MCHC 33.1 g/dL (28.0-37.0); MCV 104.2 fL (80.0-100.0); MPV 7.7 fl. (7.2-11.1); RBC 2.75 mil/uL (4.20-5.00); WBC 6.1 thou/uL (4.0-11.0)
[2020-09-24 06:45] LABS: ALBUMIN 2.1 g/dL (3.4-5.0); CALCIUM 8.2 mg/dL (8.5-10.1); CREATININE 0.6 mg/dL (0.6-1.3); MAGNESIUM 1.8 mg/dL (1.8-2.4); POTASSIUM 3.3 mmol/L (3.5-5.1); TOTAL BILIRUBIN 0.3 mg/dL (<0.1-1.0); TOTAL PROTEIN 5.4 g/dL (6.4-8.2)
--- NOTE | 2020-09-24 15:34 | NUR ---
[facility] UPDATED [facility]/JENNIFER THAT PT WILL D/C TODAY, JENNIFER STATED THEY WILL START CARE TOMORROW.
--- NOTE | 2020-09-24 18:16 | NUR ---
PATIENT GIVEN DISCHARGE INSTRUCTIONS AND INFORMATION SHEETS FOR NEW PRESCRIPTIONS. IV REMOVED. PATIENT LEFT UNIT WITH PERSONAL BELONGINGS VIA W/C, ACCOMPANIED BY NURSING STAFF AND AT APPROX. [id number].
== END 2020-09-24 18:10 | disposition home health service (06) | DRG 492 ==
LOC: M.ERS 00:02 → M.TBA 04:31 → M.ORTHSURG 04:31 → M.2W 04:31 → M.ORTHSURG 05:15 → M.2W 09-18 01:07
PROVIDERS: Emergency Medicine; Internal Medicine; ADMIT Internal Medicine; ATTEND Internal Medicine
DX: S82.451B Displaced comminuted fracture of shaft of right fibula, initial encounter for open fracture type I or II (principal); G92 Toxic encephalopathy; S32.038A Other fracture of third lumbar vertebra, initial encounter for closed fracture; S32.028A Other fracture of second lumbar vertebra, initial encounter for closed fracture; S82.251B Displaced comminuted fracture of shaft of right tibia, initial encounter for open fracture type I or II; Z20.822 Contact with and (suspected) exposure to COVID-19; W18.39XA Other fall on same level, initial encounter; F20.9 Schizophrenia, unspecified; F10.20 Alcohol dependence, uncomplicated; Y90.9 Presence of alcohol in blood, level not specified; W01.0XXA Fall on same level from slipping, tripping and stumbling without subsequent striking against object, initial encounter; T50.995A Adverse effect of other drugs, medicaments and biological substances, initial encounter; Z87.440 Personal history of urinary (tract) infections; Z79.899 Other long term (current) drug therapy; Z88.6 Allergy status to analgesic agent; Y93.89 Activity, other specified; Y92.89 Other specified places as the place of occurrence of the external cause; Y99.8 Other external cause status; Z71.41 Alcohol abuse counseling and surveillance of alcoholic